=== PATIENT | female | born 2000 ===

== ENCOUNTER 2020-09-01 03:26 | Emergency (ER) | payer SELFPAY ==
[~2020-09-01] VITALS: Ht 152.4 cm; Wt 59.0 kg
[2020-09-01 03:27] VITALS: BP 147/90
== END 2020-09-01 03:47 | disposition left against medical advice (07) ==
LOC: ER 03:26
DX: J02.9 Acute pharyngitis, unspecified (principal); R05 Cough; Z53.21 Procedure and treatment not carried out due to patient leaving prior to being seen by health care provider